=== PATIENT | male | born 1950 | race Caucasian/White ===

== ENCOUNTER 2020-04-11 09:33 | Outpatient (CLI) | payer MEDICARE, OTHER | END 2020-04-11 09:34 | disposition home or self-care (01) | LOC: LAB 09:33 | PROVIDERS: ATTEND Family Medicine | DX: E55.9 Vitamin D deficiency, unspecified (principal); E29.1 Testicular hypofunction | CPT/HCPCS: 36415; 82306; 84403 ==

== ENCOUNTER 2020-09-27 10:27 | Outpatient (CLI) | payer MEDICARE, OTHER | END 2020-09-27 10:28 | disposition home or self-care (01) | LOC: COV 10:27 | PROVIDERS: ATTEND Orthopaedic Surgery | DX: Z01.812 Encounter for preprocedural laboratory examination (principal); M19.041 Primary osteoarthritis, right hand; Z20.822 Contact with and (suspected) exposure to COVID-19 ==

== ENCOUNTER 2020-09-27 10:29 | Outpatient (CLI) | payer MEDICARE, OTHER ==
[2020-09-27 10:55] LABS: CALCIUM 9.7 mg/dL (8.5-10.3)
== END 2020-09-27 10:30 | disposition home or self-care (01) ==
LOC: LAB 10:29
PROVIDERS: ATTEND Orthopaedic Surgery
DX: Z01.812 Encounter for preprocedural laboratory examination (principal); M19.041 Primary osteoarthritis, right hand; Z20.822 Contact with and (suspected) exposure to COVID-19
CPT/HCPCS: 36415; 80048; U0004

== ENCOUNTER 2020-12-31 16:59 | Outpatient (CLI) | payer MEDICARE, OTHER | END 2020-12-31 17:00 | disposition home or self-care (01) | LOC: COV 16:59 | PROVIDERS: ATTEND Family Medicine | DX: M79.10 Myalgia, unspecified site (principal); R68.83 Chills (without fever); R07.0 Pain in throat; R19.7 Diarrhea, unspecified; R43.8 Other disturbances of smell and taste; R09.81 Nasal congestion; J34.89 Other specified disorders of nose and nasal sinuses; Z20.822 Contact with and (suspected) exposure to COVID-19 ==

== ENCOUNTER 2021-01-29 19:20 | Emergency (ER) | payer MEDICARE, OTHER ==
--- NOTE | 2021-01-29 19:56 | ED Physician Documentation ---
History of Present Illness - Stated complaint Stated Complaint: ALLERGIC REACTION - Chief complaint Chief Complaint: Allergic Rx - Additonal information Additional information: 70-year-old male presents the emergency department for evaluation of a diffuse rash. He unfortunately has a history of C. difficile diarrhea. Due to medication allergies that include an allergy to vancomycin he completed a 10-day course of Dificid on 24 January. He began to develop an erythematous, pruritic and macular rash on his legs starting the . Since then this rash has marched unabated. He now has a diffuse macular rash on his torso and legs, palms of hands and soles of feet. no blistering. He describes intense pruritus. He did speak with his PCP via Zoom visit on the and had a prednisone taper prescribed. He is also taking pepcid, zyrtec and benadryl. He did fill the prednisone prescription yesterday but despite this the rash is worsening. He has no fevers no cough. No mucosal or eye involvement. He reports that over the last 3 days he has not been urinating well and has gained 12 pounds. He denies chest pain or shortness of air. Past medical history is most significant for hypertension, C. difficile diarrhea. Review of Systems Constitutional: denies: Fever Eyes: reports: Reviewed and negative Ears: reports: Reviewed and negative Nose: reports: Reviewed and negative Throat: reports: Reviewed and negative Cardiac: reports: Reviewed and negative Respiratory: reports: Reviewed and negative GI: reports: Diarrhea (History of C. difficile diarrhea) : reports: Reviewed and negative Skin: reports: Rash Musculoskeletal: reports: Reviewed and negative Neurologic: reports: Reviewed and negative PD PAST MEDICAL HISTORY - Present Medications Home Medications: Ambulatory Orders Medication Instructions Recorded Confirmed hydrOXYzine PAMOATE [Vistaril] 25 mg PO Q6H PRN #30 01/29/21 - Allergies Allergies/Adverse Reactions: Allergies Allergy/AdvReac Type Severity Reaction Status Date / Time cephalexin [From Keflex] Allergy Rash Verified 01/29/21 19:31 fidaxomicin [From Dificid] Allergy Rash Verified 01/29/21 19:31 tobramycin Allergy Unknown Verified 01/29/21 19:31 vancomycin Allergy Unknown Verified 01/29/21 19:31 PD ED PE EXPANDED - General General: Alert, No acute distress, Well developed/nourished - Cardiac Cardiac: Regular Rate, Radial strong equal, Pedal strong equal, Cap refill < 2 sec. No: Murmur Present - Respiratory Respiratory: Clear to ausultation kei. No: Distress, Labored - Abdomen Abdomen: Normal Bowel sounds. No: Tender to palpation - Derm Derm: Rash, Other (diffuse macular pruritic rash on arms, toso, legs, abdomen. No intraoral involvment. negative nickolsky ) - Extremities Extremities: Normal. No: Deformity, Tenderness - Neuro Neuro: Alert and Oriented X 3, CNII-XII intact - GCS Eye Opening: Spontaneous Motor: Obeys Commands Verbal: Oriented Total: 15 Results - Vitals Vitals: Vital Signs - 24 hr 01/29/21 19:31 Temperature 37.3 C Heart Rate 96 Respiratory 18 Rate Blood Pressure 132/110 H O2 Saturation 96 Oxygen O2 Source Room air - Labs Labs: Laboratory Tests 01/29/21 01/29/21 01/29/21 19:54 19:57 19:57 WBC 17.6 H RBC 5.27 Hgb 15.8 Hct 47.7 MCV 90.5 MCH 30.0 MCHC 33.1 RDW 13.0 Plt Count 239 MPV 10.9 Neut # (Auto) 15.6 H Lymph # (Auto) 0.8 L [place] # (Auto) 0.3 Eos # (Auto) 0.7 Baso # (Auto) 0.0 Absolute Nucleated RBC 0.00 Nucleated RBC % 0.0 ESR 1 Sodium Potassium Chloride Carbon Dioxide Anion Gap BUN Creatinine Estimated GFR (MDRD) Glucose Calcium Total Bilirubin AST ALT Alkaline Phosphatase C-Reactive Protein Total Protein Albumin Globulin Albumin/Globulin Ratio Lipase Urine Color YELLOW Urine Clarity CLEAR Urine pH 6.0 Ur Specific [place] 1.020 Urine Protein NEGATIVE Urine Glucose (UA) NEGATIVE Urine Ketones NEGATIVE Urine Occult Blood NEGATIVE Urine Nitrite NEGATIVE Urine Bilirubin NEGATIVE Urine Urobilinogen 0.2 (NORMAL) Ur Leukocyte Esterase NEGATIVE Ur Microscopic Review NOT INDICATED Urine Culture Comments NOT INDICATED 01/29/21 19:57 WBC RBC Hgb Hct MCV MCH MCHC RDW Plt Count MPV Neut # (Auto) Lymph # (Auto) [place] # (Auto) Eos # (Auto) Baso # (Auto) Absolute Nucleated RBC Nucleated RBC % ESR Sodium 136 Potassium 4.0 Chloride 101 Carbon Dioxide 21 Anion Gap 14.0 H BUN 30 H Creatinine 1.3 H Estimated GFR (MDRD) 55 L Glucose 185 H Calcium 9.8 Total Bilirubin 0.7 AST 19 ALT 26 Alkaline Phosphatase 56 C-Reactive Protein 2.6 H Total Protein 7.0 Albumin 4.3 Globulin 2.7 Albumin/Globulin Ratio 1.6 Lipase 23 Urine Color Urine Clarity Urine pH Ur Specific [place] Urine Protein Urine Glucose (UA) Urine Ketones Urine Occult Blood Urine Nitrite Urine Bilirubin Urine Urobilinogen Ur Leukocyte Esterase Ur Microscopic Review Urine Culture Comments PD MEDICAL DECISION MAKING - ED course Complexity details: reviewed results, considered differential, d/w patient ED course: 70-year-old male presents emergency department for fixed drug eruption that began 5 days ago after he completed a 10-day course of Dificid for C. difficile diarrhea. This rash is blanchable with a negative Nikolsky's. Is generalized macular and intensely pruritic. Patient had reported 12 pound weight gain over the last 2 days and reduced urinary output. However his UA shows no proteinuria. There are no signs of infection. Screening labs show a moderate leukocytosis which I think is likely marginalization. Given lack of fevers or findings of cellulitis low suspicion for infection. Screening labs do show a BUN of 30 and a creatinine of 1.3. He is mildly dehydrated and was repleted with 1 L of fluids. His primary care provider has put him on a rather long prednisone taper that he just started yesterday. At this time given the lack of oral mucosal involvement, negative Nikolsky's and an otherwise reassuring exam no further treatment is necessary. He does not seem to have HSP or findings of renal involvement. I have encouraged him to continue the prednisone taper. He will be referred to dermatology where a skin punch biopsy can be helpful in further differentiation of this rash. I will start him on Vistaril to help with the itch. Emergent return precautions were discussed for worsening rash with blistering, any oral mucosal involvement, chest pain or shortness of air. Departure - Departure Disposition: 01 Home, Self Care Clinical Impression: Fixed drug eruption Condition: Stable Record reviewed to determine appropriate education?: Yes Instructions: ED Drug React Allergic Prescriptions: hydrOXYzine PAMOATE [Vistaril] 25 mg PO Q6H PRN #30 PRN Reason: Itching Comments: Pieterchucky litzy were seen in the emergency department today for A rash that developed after you finished the recent antibiotic for your C. difficile. At this time it is important that you continue the full course of the steroid taper. I would like you to continue taking cooler showers to help with the itch. You can try any [id number] ointment such as Benadryl or hydrocortisone. I am prescribing Vistaril but this is often more effective at relieving itch than Benadryl. Do not take the Benadryl if you are taking the Vistaril. This could cause excessive sedation. It is important that you follow-up with your primary care provider as well as a learning operations specialist. A punch biopsy can be completed to help determine the full etiology of this rash. If at any point you feel that the rash is worsening, you have labored breathing, you develop blisters or sores in your mouth, or your rash begins to blister on the outside please return immediately to the ER for a second look. [facility], [employer] [address] Kirsten Hurley [facility] Becky Carballo [address] [address]
[2021-01-29 20:06] LABS: BILIRUBIN,URINE NEGATIVE (NEGATIVE); GLUCOSE, URINE (UA) NEGATIVE (NEGATIVE); KETONES,URINE (UA) NEGATIVE (NEGATIVE); LEUKOCYTE ESTERASE, URINE NEGATIVE (NEGATIVE); NITRITE,URINE NEGATIVE (NEGATIVE); OCCULT BLOOD,URINE NEGATIVE (NEGATIVE); PROTEIN,URINE NEGATIVE (NEGATIVE); UROBILINOGEN,URINE 0.2 (NORMAL) E.U./dL (NORMAL)
[2021-01-29 20:10] LABS: BASOPHILS % (AUTO) 0.2 %; EOSINOPHILS # (AUTO) 0.7 10^3/uL (0.0-0.7); HCT - HEMATOCRIT 47.7 % (42.0-52.0); HGB - HEMOGLOBIN 15.8 g/dL (14.0-18.0); LYMPHOCYTES # (AUTO) 0.8 10^3/uL (1.5-3.5); LYMPHOCYTES % (AUTO) 4.7 %; MEAN CORPUSCULAR HGB CONC 33.1 g/dL (32.0-36.0); MEAN CORPUSCULAR VOLUME 90.5 fL (80.0-94.0); MEAN PLATELET VOLUME 10.9 fL (7.4-11.4); MONOCYTES # (AUTO) 0.3 10^3/uL (0.0-1.0); MONOCYTES % (AUTO) 1.5 %; NEUTROPHILS # (AUTO) 15.6 10^3/uL (1.5-6.6); NEUTROPHILS % (AUTO) 88.9 %; PLT - PLATELET COUNT 239 10^3/uL (130-450); RED BLOOD COUNT 5.27 10^6/uL (4.70-6.10); WHITE BLOOD COUNT 17.6 x10^3/uL (4.8-10.8)
[2021-01-29 20:12] LABS: CLARITY,URINE CLEAR (CLEAR)
[2021-01-29 20:25] LABS: ALBUMIN 4.3 g/dL (3.2-5.5); ALBUMIN/GLOBULIN RATIO 1.6 (1.0-2.2); BILIRUBIN,TOTAL 0.7 mg/dL (0.2-1.0); CALCIUM 9.8 mg/dL (8.5-10.3); CREATININE 1.3 mg/dL (0.6-1.2); CRP - C-REACTIVE PROTEIN 2.6 mg/dL (0-1.0)
[2021-01-29] MEDS ORDERED: SODIUM CHLORIDE 0.9% 1,000 ML IV STA (20:29)
[2021-01-29] MEDS ORDERED: hydrOXYzine 50 MG/ML VIAL IM STA (21:17)
[2021-01-29 21:44] VITALS: BP 132/76
--- NOTE | 2021-01-29 21:44 | XRAY Report ---
PROCEDURE: Chest 1 View X-Ray INDICATIONS: chest pain TECHNIQUE: One view of the chest was acquired. COMPARISON: Chest x-ray 12/28/2019 FINDINGS: Surgical changes and devices: None. Lungs and pleura: No pleural effusions or pneumothorax. Lungs are clear. Mediastinum: Mediastinal contours appear normal. Heart size is normal. Bones and chest wall: No suspicious bony lesions. Overlying soft tissues appear unremarkable. IMPRESSION: No acute pulmonary process. Reviewed by: Minla Adrian MD on 01/29/2021 9:43 PM PDT Approved by: Minal Adrian MD on 01/29/2021 9:43 PM PDT Station ID: [id number]
== END 2021-01-29 21:56 | disposition home or self-care (01) ==
LOC: ED 19:20
DX: L27.1 Localized skin eruption due to drugs and medicaments taken internally (principal)
CPT/HCPCS: 36415; 80053; 81001; 81003; 83690; 85025; 85651; 86140; 87086; 96360; 99284

== ENCOUNTER 2022-05-29 10:13 | Outpatient (CLI) | payer MEDICARE, OTHER ==
--- NOTE | 2022-05-29 10:40 | XRAY Report ---
PROCEDURE: Chest 2 View X-Ray INDICATIONS: PRODUCTIVE COUGH TECHNIQUE: 2 views of the chest were acquired. COMPARISON: 01/29/2021 and 12/28/2019 FINDINGS: Surgical changes and devices: Postsurgical changes are again seen in left glenoid. Lungs and pleura: No pleural effusions or pneumothorax. Lungs are clear. Mediastinum: Mediastinal contours are normal. Heart size is normal. Bones and chest wall: No suspicious bony abnormalities. Soft tissues appear unremarkable. IMPRESSION: No acute cardiopulmonary pathology. Reviewed by: Diomedes Garcia MD on 05/29/2022 10:39 AM [facility] Approved by: Diomedes Garcia MD on 05/29/2022 10:39 AM [facility] Station ID: [id number]
== END 2022-05-29 10:14 | disposition home or self-care (01) ==
LOC: DI.S 10:13
PROVIDERS: ATTEND Physician Assistant
DX: R05.8 Other specified cough (principal)